=== PATIENT | female | born 1955 | race Caucasian/White ===

== ENCOUNTER 2018-09-23 14:55 | Outpatient (CLI) | payer MEDICARE, MEDICAID | END 2018-09-23 23:59 | disposition home or self-care (01) | LOC: RAD 14:55 | PROVIDERS: ATTEND Family Medicine | DX: Z23 Encounter for immunization (principal); R94.01 Abnormal electroencephalogram [EEG]; I69.959 Hemiplegia and hemiparesis following unspecified cerebrovascular disease affecting unspecified side; R44.1 Visual hallucinations; R44.2 Other hallucinations; R56.9 Unspecified convulsions; R53.1 Weakness; Z87.820 Personal history of traumatic brain injury | CPT/HCPCS: 95816 ==

== ENCOUNTER 2021-11-13 14:09 | Outpatient (CLI) | payer MEDICARE, MEDICAID | END 2021-11-13 23:59 | disposition home or self-care (01) | LOC: VAS 14:09 | PROVIDERS: ATTEND Family Medicine | DX: M79.89 Other specified soft tissue disorders (principal) | CPT/HCPCS: 93971 ==

== ENCOUNTER 2022-01-10 10:26 | Outpatient (CLI) | payer MEDICARE, MEDICAID | END 2022-01-10 23:59 | disposition home or self-care (01) | LOC: RAD 10:26 | PROVIDERS: ATTEND Family Medicine | DX: S92.001A Unspecified fracture of right calcaneus, initial encounter for closed fracture (principal); M76.71 Peroneal tendinitis, right leg; M79.89 Other specified soft tissue disorders; X58.XXXA Exposure to other specified factors, initial encounter; Y93.89 Activity, other specified; Y92.89 Other specified places as the place of occurrence of the external cause; Y99.8 Other external cause status | CPT/HCPCS: 73721 ==

== ENCOUNTER 2022-12-03 10:00 | Emergency (ER) | payer MEDICARE, MEDICAID ==
[~2022-12-03] VITALS: Ht 165.1 cm; Wt 94.8 kg
[2022-12-03 10:10] VITALS: BP 136/88; PULSE 75; RESP 16; TEMP 97.8; O2SAT 97
[2022-12-03] MEDS ORDERED: bacitracin 15gm ointment TP ONE (10:15)
[2022-12-03] MEDS ORDERED: LIDOcaine 1% W/epiNEPHrine 1:100,000 20ml vial IJ ONE (10:15)
[2022-12-03] MEDS ORDERED: CEPH-585 PO (12:34)
== END 2022-12-03 12:43 | disposition home or self-care (01) ==
LOC: ER 10:01
DX: S30.1XXA Contusion of abdominal wall, initial encounter (principal); L02.211 Cutaneous abscess of abdominal wall; L98.9 Disorder of the skin and subcutaneous tissue, unspecified; Z72.89 Other problems related to lifestyle; W22.8XXA Striking against or struck by other objects, initial encounter; Y93.89 Activity, other specified; Y92.89 Other specified places as the place of occurrence of the external cause; Y99.8 Other external cause status
CPT/HCPCS: 10060; 99283; A6266; A6449

== ENCOUNTER 2024-07-09 10:24 | Emergency (ER) | payer MEDICARE, MEDICAID ==
[~2024-07-09] VITALS: Ht 165.1 cm; Wt 109.8 kg
[2024-07-09] MEDS ORDERED: TRAZ-256 (12:02)
[2024-07-09] MEDS ORDERED: OXYB-58 (12:02)
[2024-07-09] MEDS ORDERED: LORAZEPAM (12:02)
[2024-07-09] MEDS ORDERED: AMLO5TAB16 (12:02)
[2024-07-09] MEDS ORDERED: DONE10TA44 PO (12:02)
[2024-07-09] MEDS ORDERED: LISI20TA28 (12:02)
[2024-07-09] MEDS ORDERED: BUSP10TA3 (12:02)
[2024-07-09] MEDS ORDERED: ATOR20TA66 (12:02)
[2024-07-09] MEDS ORDERED: LAMO100T PO (12:02)
[2024-07-09] MEDS ORDERED: GABA-530 (12:02)
[2024-07-09] MEDS ORDERED: TIZA4CAP6 (12:02)
[2024-07-09] MEDS ORDERED: CARB200C7 (12:02)
[2024-07-09] MEDS ORDERED: ESCI-8 (12:02)
[2024-07-09] MEDS ORDERED: NAPR-1168 (12:02)
[2024-07-09] MEDS ORDERED: RISP-31 (12:02)
[2024-07-09 12:17] LABS: BASOPHILS % (AUTO) 0.5 % (0-1); EOSINOPHILS # (AUTO) 0.6 X10'3 (0-0.9); EOSINOPHILS % (AUTO) 8.4 % (0-6); HEMOGLOBIN 11.9 g/dl (12.0-16.0); LYMPHOCYTES # (AUTO) 1.9 X10'3 (1.1-4.8); LYMPHOCYTES % (AUTO) 27.8 % (21-51); MEAN CORPUSCULAR HEMOGLOBIN 30.8 PG (27.0-31.0); MEAN CORPUSCULAR VOLUME 90.8 FL (78-98); MEAN PLATELET VOLUME 6.7 FL (7.4-10.4); MONOCYTES # (AUTO) 0.6 X10'3 (0-0.9); MONOCYTES % (AUTO) 8.7 % (2-12); NEUTROPHILS # (AUTO) 3.7 X10'3 (1.8-7.7); NEUTROPHILS % (AUTO) 54.6 % (42-75); PLATELET COUNT 224 X10'3 (140-440); RED BLOOD COUNT 3.86 X10'6 (4.20-5.60); RED CELL DISTRIBUTION WIDTH 12.8 % (11.5-14.5); WHITE BLOOD COUNT 6.7 X10'3 (4.5-11.0)
[2024-07-09 12:29] LABS: ALANINE AMINOTRANSFERASE 104 U/L (12-78); ALBUMIN 3.8 G/DL (3.4-5.0); ALKALINE PHOSPHATASE 167 IU/L (46-116); ANION GAP 10 (8-16); ASPARTATE AMINO TRANSFERASE 103 U/L (10-37); BILIRUBIN,TOTAL 0.5 MG/DL (0.1-1.0); BLOOD UREA NITROGEN 6 MG/DL (7-18); BUN/CREATININE RATIO 9.5 (10.0-20.0); C-REACTIVE PROTEIN 0.72 MG/DL (0.0-0.5); CALCIUM 8.9 MG/DL (8.5-10.1); CHLORIDE 88 MMOL/L (99-107); CREATININE 0.63 MG/DL (0.40-0.90); GLUCOSE 121 MG/DL (70-104); MAGNESIUM 1.4 MG/DL (1.5-2.4); PRO BRAIN NATRIURETIC PEPTIDE 179 PG/ML (0-125); SODIUM 125 MMOL/L (135-145); TOTAL PROTEIN 7.8 G/DL (6.4-8.2); eCRCL 78 ML/MIN; eGFR > 90 ML/MIN
[2024-07-09] MEDS ORDERED: CEPH-585 PO (13:39)
[2024-07-09] MEDS ORDERED: MUPI22OI30 TOP (13:41)
[2024-07-09 14:02] VITALS: BP 191/80; PULSE 83; RESP 16; TEMP 98.1; O2SAT 100
== END 2024-07-09 14:05 | disposition home or self-care (01) ==
LOC: ER 10:24
DX: L03.116 Cellulitis of left lower limb (principal); L03.115 Cellulitis of right lower limb; L01.00 Impetigo, unspecified; F20.9 Schizophrenia, unspecified; F32.A Depression, unspecified; Z79.899 Other long term (current) drug therapy; Z72.89 Other problems related to lifestyle
CPT/HCPCS: 36415; 71045; 80053; 83735; 83880; 84484; 85025; 85651; 86140; 99284

== ENCOUNTER 2024-07-12 09:59 | Emergency (ER) | payer MEDICARE, MEDICAID ==
[~2024-07-12] VITALS: Ht 165.1 cm; Wt 86.7 kg
[~2024-07-12 09:59] MED LIST: AMLO5TAB16; ATOR20TA66; BUSP10TA3; CARB200C7; CEPH-585 PO; DONE10TA44 PO; ESCI-8; GABA-530; LAMO100T PO; LISI20TA28; LORAZEPAM; MUPI22OI30 TOP; NAPR-1168; OXYB-58; RISP-31; TIZA4CAP6; TRAZ-256
[2024-07-12 12:09] LABS: BASOPHILS % (AUTO) 0.6 % (0-1); EOSINOPHILS # (AUTO) 0.5 X10'3 (0-0.9); EOSINOPHILS % (AUTO) 9.5 % (0-6); HEMATOCRIT 36.7 % (35.0-45.0); HEMOGLOBIN 12.1 g/dl (12.0-16.0); LYMPHOCYTES # (AUTO) 1.6 X10'3 (1.1-4.8); LYMPHOCYTES % (AUTO) 29.4 % (21-51); MEAN CORPUSCULAR HEMOGLOBIN 30.2 PG (27.0-31.0); MEAN CORPUSCULAR HGB CONC 32.9 g/dL (33.0-36.5); MEAN CORPUSCULAR VOLUME 91.9 FL (78-98); MEAN PLATELET VOLUME 6.7 FL (7.4-10.4); MONOCYTES # (AUTO) 0.6 X10'3 (0-0.9); MONOCYTES % (AUTO) 10.6 % (2-12); NEUTROPHILS # (AUTO) 2.7 X10'3 (1.8-7.7); NEUTROPHILS % (AUTO) 49.9 % (42-75); PLATELET COUNT 233 X10'3 (140-440); RED CELL DISTRIBUTION WIDTH 13.1 % (11.5-14.5); WHITE BLOOD COUNT 5.4 X10'3 (4.5-11.0)
[2024-07-12 12:38] LABS: ANION GAP 11 (8-16); BLOOD UREA NITROGEN 8 MG/DL (7-18); BUN/CREATININE RATIO 10.7 (10.0-20.0); CALCIUM 9.3 MG/DL (8.5-10.1); CHLORIDE 87 MMOL/L (99-107); CREATININE 0.75 MG/DL (0.40-0.90); GLUCOSE 116 MG/DL (70-104); POTASSIUM 4.6 MMOL/L (3.5-5.1); SODIUM 123 MMOL/L (135-145); TOTAL CARBON DIOXIDE 24.9 MMOL/L (24-32); eCRCL 66 ML/MIN; eGFR 77 ML/MIN
[2024-07-12 13:00] VITALS: PULSE 76
[2024-07-12] MEDS ORDERED: POTA-192 PO (13:24)
[2024-07-12] MEDS ORDERED: FURO-149 PO (13:24)
[2024-07-12] MEDS ORDERED: silver sulfadiazine cream 400gm jar TP STA (13:24)
[2024-07-12] MEDS ORDERED: METH4TAB81 PO (13:24)
[2024-07-12] MEDS ORDERED: TRIA15CR61 TOP (13:24)
[2024-07-12] MEDS ORDERED: silver sulfadiazine cream 50gm TP STA (13:27)
[2024-07-12 14:33] VITALS: BP 168/75; RESP 16; TEMP 98.7; O2SAT 96
== END 2024-07-12 14:43 | disposition home or self-care (01) ==
LOC: ER 10:00
DX: L03.115 Cellulitis of right lower limb (principal)
CPT/HCPCS: 36415; 80048; 83605; 84145; 85025; 87040; 99284; A6258; A6446